=== PATIENT | male | born 1950 | race Two or more races ===

== ENCOUNTER 2022-11-12 09:55 | Inpatient (IN) | payer MEDICARE, OTHER ==
[~2022-11-12] VITALS: Ht 163.8 cm; Wt 50.1 kg
[2022-11-12 12:00] LABS: BASOPHILS % 0.6 % (0.0-2.0); EOSINOPHILS % 1.6 % (0.0-5.0); HEMATOCRIT. 41.2 % (42.0-52.0); HEMOGLOBIN. 13.7 g/dL (14.0-18.0); LYMPHOCYTES % 24.2 % (20.0-50.0); MEAN CORPUSCULAR HEMOGLOBIN 31.7 pg (28.0-32.0); MEAN CORPUSCULAR VOLUME 95.2 fL (80.0-94.0); MEAN PLATELET VOLUME 7.1 fl (7.4-10.4); MONOCYTES % 7.6 % (2.0-8.0); PLATELET 215 x1000/uL (130-400); RED BLOOD CELL COUNT 4.33 mill/uL (4.7-6.1); RED CELL DISTRIBUTION WIDTH 14.7 % (11.6-14.6)
[2022-11-12 12:05] LABS: CHLORIDE 113 mEq/L (98-107)
[2022-11-12 12:07] LABS: PROTHROMBIN TIME 11.1 sec (9.6-11.0)
[2022-11-12] MEDS ORDERED: ASPIRIN 81MG TABLET PO ONE (12:45)
[2022-11-12] MEDS ORDERED: CLOPIDOGREL 75MG TABLET PO ONE (12:45)
[2022-11-12] MEDS ORDERED: POTASSIUM CHLORIDE 20MEQ TABLET SR PO ONE (13:45)
[2022-11-12] MEDS ORDERED: KCL 10MEQ/50ML PREMIX 50 ML IV NR (15:15)
[2022-11-12] MEDS ORDERED: DOCUSATE SODIUM 100MG CAPSULE PO PRN (15:15)
[2022-11-12] MEDS ORDERED: GUAIFENESIN 200MG/10ML SUGAR FREE UDC PO PRN (15:15)
[2022-11-12] MEDS ORDERED: ONDANSETRON HCL 4MG/2ML INJ IV PRN (15:15)
[2022-11-12] MEDS ORDERED: MAGNESIUM/ALUMINUM HYDROXIDE/SIMETHICONE 30ML UDC PO PRN (15:15)
[2022-11-12] MEDS ORDERED: ACETAMINOPHEN 325MG TABLET PO PRN (15:15)
[2022-11-12] MEDS ORDERED: TRAMADOL 50MG TABLET PO PRN (15:15)
[2022-11-12] MEDS ORDERED: NALOXONE HCL 0.4MG/ML VIAL IV PRN (15:30)
[2022-11-12] MEDS: ENOXAPARIN 40MG/0.4ML SYR SUBCUT SCH (16:00)
[2022-11-12] MEDS ORDERED: BLOOD SUGAR DIAGNOSTIC STRIP TEST SCH (21:00)
[2022-11-12 21:40] VITALS: BP 148/54
[2022-11-12] MEDS ORDERED: DEXTROSE 50% WATER 50ML SYRINGE IV PRN (22:30)
[2022-11-12] MEDS: INSULIN LISPRO 100 UNITS/ML SUBCUT SCH (22:58)
[2022-11-13] VITALS: BP 148/68
[2022-11-13 04:00] VITALS: BP 157/70
[2022-11-13] MEDS: BLOOD SUGAR DIAGNOSTIC STRIP TEST SCH ×4 (06:11→20:28)
[2022-11-13] MEDS: INSULIN LISPRO 100 UNITS/ML SUBCUT SCH ×4 (06:11→20:27)
[2022-11-13] MEDS ORDERED: BLOOD SUGAR DIAGNOSTIC STRIP TEST SCH (07:10)
[2022-11-13 07:26] LABS: BASOPHILS % 0.5 % (0.0-2.0); EOSINOPHILS % 1.3 % (0.0-5.0); HEMATOCRIT. 42.4 % (42.0-52.0); HEMOGLOBIN. 14.2 g/dL (14.0-18.0); LYMPHOCYTES % 22.3 % (20.0-50.0); MEAN CORPUSCULAR HEMOGLOBIN 31.8 pg (28.0-32.0); MEAN CORPUSCULAR VOLUME 94.8 fL (80.0-94.0); MEAN PLATELET VOLUME 7.9 fl (7.4-10.4); MONOCYTES % 8.2 % (2.0-8.0); NEUTROPHILS % 67.7 % (40.0-76.0); PLATELET 228 x1000/uL (130-400); RED BLOOD CELL COUNT 4.48 mill/uL (4.7-6.1); RED CELL DISTRIBUTION WIDTH 14.5 % (11.6-14.6)
[2022-11-13] MEDS ORDERED: INSULIN LISPRO 100 UNITS/ML SUBCUT SCH (07:40)
[2022-11-13 07:46] VITALS: BP 168/79
[2022-11-13 07:58] LABS: CHLORIDE 112 mEq/L (98-107)
[2022-11-13 08:08] LABS: HDL CHOLESTEROL 41 mg/dL (40-59); LDL CHOLESTEROL 63 mg/dL (5-100)
[2022-11-13] MEDS: AMLODIPINE 10MG TABLET PO SCH (08:34)
[2022-11-13] MEDS: ASPIRIN 81MG EC TABLET PO SCH (08:34)
[2022-11-13] MEDS ORDERED: SITA100T11 PO (10:15)
[2022-11-13] MEDS ORDERED: CETI10TA11 MT (10:15)
[2022-11-13] MEDS ORDERED: METO25TA6 MT (10:15)
[2022-11-13] MEDS ORDERED: EMPA25TA MT (10:15)
[2022-11-13] MEDS ORDERED: METF-416 MT (10:15)
[2022-11-13] MEDS ORDERED: ASPI-1497 PO (10:15)
[2022-11-13] MEDS ORDERED: ATOR-2 MT (10:15)
[2022-11-13 11:32] VITALS: BP 146/66
[2022-11-13] MEDS: METOPROLOL TARTRATE 25MG TABLET PO SCH ×2 (13:25→20:27)
[2022-11-13] MEDS ORDERED: *PATIENT'S OWN MEDICATION STORAGE XX SCH (14:00)
[2022-11-13 16:01] VITALS: BP 131/68
[2022-11-13] MEDS: ENOXAPARIN 40MG/0.4ML SYR SUBCUT SCH (16:51)
[2022-11-13] MEDS: METFORMIN HCL 500MG TABLET PO SCH (18:03)
[2022-11-13 19:58] VITALS: BP 136/60
[2022-11-13] MEDS: ATORVASTATIN CALCIUM 40MG TABLET PO SCH (20:28)
[2022-11-14] VITALS: BP 126/59
[2022-11-14 04:00] VITALS: BP 148/81
[2022-11-14] MEDS: INSULIN LISPRO 100 UNITS/ML SUBCUT SCH ×4 (06:12→20:11)
[2022-11-14] MEDS: BLOOD SUGAR DIAGNOSTIC STRIP TEST SCH ×4 (06:12→20:11)
[2022-11-14 08:00] VITALS: BP 139/64
[2022-11-14] MEDS: ASPIRIN 81MG EC TABLET PO SCH (08:37)
[2022-11-14] MEDS: METFORMIN HCL 500MG TABLET PO SCH ×2 (08:37→17:27)
[2022-11-14] MEDS: AMLODIPINE 10MG TABLET PO SCH (08:38)
[2022-11-14] MEDS: METOPROLOL TARTRATE 25MG TABLET PO SCH ×2 (08:38→20:13)
[2022-11-14 12:00] VITALS: BP 148/56
[2022-11-14] MEDS: CLOPIDOGREL 75MG TABLET PO SCH (12:18)
[2022-11-14] MEDS ORDERED: IOHEXOL-350 100 ML BOTTLE ONE (14:56)
[2022-11-14 16:00] VITALS: BP 139/61
[2022-11-14] MEDS: ENOXAPARIN 40MG/0.4ML SYR SUBCUT SCH (17:27)
[2022-11-14 20:00] VITALS: BP 141/65
[2022-11-14] MEDS: ATORVASTATIN CALCIUM 40MG TABLET PO SCH (20:12)
[2022-11-15] VITALS: BP 138/66
[2022-11-15 04:00] VITALS: BP 147/63
[2022-11-15] MEDS: INSULIN LISPRO 100 UNITS/ML SUBCUT SCH ×3 (06:17→17:21)
[2022-11-15] MEDS: BLOOD SUGAR DIAGNOSTIC STRIP TEST SCH ×3 (06:17→17:20)
[2022-11-15 08:00] VITALS: BP 144/63
[2022-11-15] MEDS: ASPIRIN 81MG EC TABLET PO SCH (08:20)
[2022-11-15] MEDS: AMLODIPINE 10MG TABLET PO SCH (08:20)
[2022-11-15] MEDS: CLOPIDOGREL 75MG TABLET PO SCH (08:20)
[2022-11-15] MEDS: METOPROLOL TARTRATE 25MG TABLET PO SCH (08:20)
[2022-11-15] MEDS: METFORMIN HCL 500MG TABLET PO SCH ×2 (08:20→17:28)
[2022-11-15 12:00] VITALS: BP 146/60
[2022-11-15 16:00] VITALS: BP 100/63
[2022-11-15] MEDS: ENOXAPARIN 40MG/0.4ML SYR SUBCUT SCH (17:28)
[2022-11-15 18:51] VITALS: BP 100/63
== END 2022-11-15 19:16 | disposition home health service (06) | DRG 45 ==
LOC: ER 09:55 → 8WST 13:40 → EDBEDREQ 13:44 → EDBEDREQTM 13:44
PROVIDERS: ADMIT Hospitalist; ATTEND Hospitalist
DX: I63.81 Other cerebral infarction due to occlusion or stenosis of small artery (principal); E44.1 Mild protein-calorie malnutrition; G81.94 Hemiplegia, unspecified affecting left nondominant side; I65.21 Occlusion and stenosis of right carotid artery; I65.1 Occlusion and stenosis of basilar artery; Z20.822 Contact with and (suspected) exposure to COVID-19; E78.5 Hyperlipidemia, unspecified; E87.6 Hypokalemia; I10 Essential (primary) hypertension; E11.9 Type 2 diabetes mellitus without complications; F17.200 Nicotine dependence, unspecified, uncomplicated; Z68.1 Body mass index [BMI] 19.9 or less, adult; Z96.649 Presence of unspecified artificial hip joint; Z82.49 Family history of ischemic heart disease and other diseases of the circulatory system; R29.702 NIHSS score 2
CPT/HCPCS: 36415; 70496; 70498; 70551; 71045; 80053; 80061; 82962; 83036; 84484; 85025; 87426; 92610; 93005; 93306; 93970; 97116; 97162; 99291; J1650; J1815; J3480; Q9967